=== PATIENT | female | born 1995 | race Caucasian/White ===

== ENCOUNTER 2021-08-23 16:13 | Emergency (ER) | payer MEDICAID ==
[~2021-08-23] VITALS: Ht 172.7 cm; Wt 65.9 kg
[2021-08-23] MEDS ORDERED: PERTUSS(ACELL),DIPH,TET VAC/PF 0.5 ML SYRINGE IM. ONE (17:15)
[2021-08-23 17:22] LABS: BASOPHILS % (AUTO) 0.7 % (0.0-2.0); EOSINOPHILS % (AUTO) 0.4 % (1.0-6.0); HEMATOCRIT 32.4 % (36-46); HEMOGLOBIN 10.5 g/dL (12.0-16.0); LYMPHOCYTES # (AUTO) 1.3 K/uL (1.0-4.8); LYMPHOCYTES % (AUTO) 24.9 % (22.0-44.0); MEAN CORPUSCULAR HEMOGLOBIN 22.9 pg (26.0-34.0); MEAN CORPUSCULAR HGB CONC 32.4 G/dL (31.0-37.0); MEAN CORPUSCULAR VOLUME 71 fL (80-100); MONOCYTES # (AUTO) 0.4 K/uL (0.1-1.0); MONOCYTES % (AUTO) 8.2 % (2.0-9.0); NEUTROPHILS # (AUTO) 3.4 K/uL (1.8-7.7); NEUTROPHILS % (AUTO) 65.8 % (40.0-70.0); PLATELET COUNT (AUTO) 307 K/uL (150-450); RED BLOOD CELL COUNT(AUTO) 4.57 MIL/uL (4.00-5.20); RED CELL DISTRIBUTION WIDTH 18.6 % (11.5-14.5)
[2021-08-23 17:30] LABS: ANION GAP 11 mmol/L (8-16); CARBON DIOXIDE 22 mmol/L (22-29); CHLORIDE 103 mmol/L (98-107); CREATININE 0.68 mg/dL (0.60-1.30); GLOMERULAR FILTR. RATE CALC > 60 mL/min (>60); GLUCOSE,RANDOM 91 mg/dL (70-110); POTASSIUM 3.3 mmol/L (3.5-5.1); SODIUM SERUM 136 mmol/L (136-145); UREA NITROGEN, BLOOD 8 mg/dL (7-18)
[2021-08-23 17:35] LABS: ALANINE AMINOTRANSFERASE 17 U/L (12-78); ALBUMIN 4.3 g/dL (3.4-5.0); ALKALINE PHOSPHATASE 46 U/L (46-116); ASPARTATE AMINOTRANSFERASE 17 U/L (15-37); BILIRUBIN,TOTAL 0.5 mg/dL (0.1-1.0); TOTAL PROTEIN, SERUM 7.8 g/dL (6.4-8.2)
[2021-08-23 18:32] VITALS: BP 114/62
== END 2021-08-23 18:47 | disposition home or self-care (01) ==
LOC: EMS 16:17
DX: S91.011A Laceration without foreign body, right ankle, initial encounter (principal); F32.9 Major depressive disorder, single episode, unspecified; F41.9 Anxiety disorder, unspecified; Z79.899 Other long term (current) drug therapy; W25.XXXA Contact with sharp glass, initial encounter; Y93.89 Activity, other specified; Y92.89 Other specified places as the place of occurrence of the external cause; Y99.8 Other external cause status
CPT/HCPCS: 36415; 73610; 80053; 85025; 90471; 90715; 99284; G0480

== ENCOUNTER 2021-09-25 17:39 | Inpatient (IN) | payer MEDICAID ==
[~2021-09-25] VITALS: Ht 172.7 cm; Wt 55.4 kg
[2021-09-25 18:27] LABS: BASOPHILS % (AUTO) 0.6 % (0.0-2.0); EOSINOPHILS % (AUTO) 0.1 % (1.0-6.0); HEMATOCRIT 30.4 % (36-46); LYMPHOCYTES # (AUTO) 1.1 K/uL (1.0-4.8); LYMPHOCYTES % (AUTO) 14.7 % (22.0-44.0); MEAN CORPUSCULAR HEMOGLOBIN 23.4 pg (26.0-34.0); MEAN CORPUSCULAR HGB CONC 32.9 G/dL (31.0-37.0); MEAN CORPUSCULAR VOLUME 71 fL (80-100); MONOCYTES # (AUTO) 0.6 K/uL (0.1-1.0); NEUTROPHILS # (AUTO) 5.5 K/uL (1.8-7.7); NEUTROPHILS % (AUTO) 76.6 % (40.0-70.0); PLATELET COUNT (AUTO) 252 K/uL (150-450); RED BLOOD CELL COUNT(AUTO) 4.27 MIL/uL (4.00-5.20); RED CELL DISTRIBUTION WIDTH 19.1 % (11.5-14.5)
[2021-09-25 18:35] LABS: ANION GAP 13 mmol/L (8-16); CARBON DIOXIDE 20 mmol/L (22-29); CHLORIDE 103 mmol/L (98-107); CREATININE 0.73 mg/dL (0.60-1.30); GLOMERULAR FILTR. RATE CALC > 60 mL/min (>60); GLUCOSE,RANDOM 93 mg/dL (70-110); POTASSIUM 3.3 mmol/L (3.5-5.1); SODIUM SERUM 136 mmol/L (136-145); UREA NITROGEN, BLOOD 11 mg/dL (7-18)
[2021-09-25 18:40] LABS: ALANINE AMINOTRANSFERASE 22 U/L (12-78); ALBUMIN 4.3 g/dL (3.4-5.0); ASPARTATE AMINOTRANSFERASE 18 U/L (15-37); BILIRUBIN,TOTAL 0.5 mg/dL (0.1-1.0); TOTAL PROTEIN, SERUM 7.4 g/dL (6.4-8.2)
[2021-09-25 18:54] LABS: ALKALINE PHOSPHATASE 42 U/L (46-116)
[2021-09-25] MEDS ORDERED: HALOPERIDOL 5 MG TABLET PO PRN (20:00)
[2021-09-25 20:05] LABS: COVID AG,FIA SOURCE NASAL SWAB
[2021-09-25] MEDS: LORazepam 2 MG TABLET PO PRN (20:30)
[2021-09-25] MEDS: ZOLPIDEM TARTRATE 10 MG TABLET PO PRN (20:58)
[2021-09-26] MEDS: LORazepam 2 MG TABLET PO PRN ×2 (08:34→16:32)
[2021-09-26] MEDS ORDERED: INFLUENZA VIRUS VACCINE QVS 2021-22 (6MO+)/PF 60 MCG/0.5 ML SYRINGE IM. ONE (10:30)
[2021-09-26 10:46] VITALS: BP 125/58
[2021-09-26] MEDS ORDERED: IBUPROFEN 600 MG TABLET PO PRN (22:00)
[2021-09-26] MEDS ORDERED: ACETAMINOPHEN 325 MG TABLET PO PRN (22:00)
[2021-09-26] MEDS ORDERED: CloNIDine HCL 0.1 MG TABLET PO PRN (22:00)
[2021-09-26] MEDS ORDERED: MAGNESIUM HYDROXIDE SUSPENSION 30 ML UDCUP PO PRN (22:00)
[2021-09-26] MEDS ORDERED: ALBUTEROL SULFATE HFA 90 MCG/PUFF 8 GM INHALER IH PRN (22:00)
[2021-09-26] MEDS ORDERED: DOCUSATE SODIUM 100 MG CAPSULE PO PRN (22:00)
[2021-09-26] MEDS ORDERED: MAG HYDROX/AL HYDROX/SIMETH ES 30 ML SUSPENSION UDCUP PO PRN (22:00)
[2021-09-26] MEDS ORDERED: LOPERAMIDE HCL 2 MG CAPSULE PO PRN (22:00)
[2021-09-26] MEDS ORDERED: BACITRACIN 28 GM OINTMENT TP PRN (22:00)
[2021-09-26] MEDS ORDERED: PETROLATUM,WHITE 28 GM JELLY TP PRN (22:00)
[2021-09-26] MEDS ORDERED: OMEPRAZOLE 20 MG CAPSULE PO PRN (22:00)
[2021-09-26] MEDS ORDERED: ONDANSETRON HCL 4 MG TABLET PO PRN (22:00)
[2021-09-26] MEDS ORDERED: BENZOCAINE/MENTHOL LOZENGE PO PRN (22:00)
[2021-09-27] MEDS: ZOLPIDEM TARTRATE 10 MG TABLET PO PRN ×2 (01:42→20:31)
[2021-09-27 01:43] VITALS: BP 134/77
[2021-09-27 08:24] LABS: FREE T4 (FREE THYROXINE) 1.28 ng/dL (0.76-1.46); THYROID STIMULATING HORMONE 0.52 uIU/mL (0.36-3.74)
[2021-09-27] MEDS ORDERED: POTASSIUM CHLORIDE 20 MEQ ER TABLET PO ONE (08:45)
[2021-09-27 08:48] VITALS: BP 105/77
[2021-09-27] MEDS: MULTIVITAMINS WITH MINERALS, THERAPEUTIC TABLET PO SCH (08:54)
[2021-09-27] MEDS: LORazepam 2 MG TABLET PO PRN ×2 (11:56→18:03)
[2021-09-27] MEDS: FERROUS SULFATE 325 MG EC TABLET PO SCH (16:26)
[2021-09-27 16:35] VITALS: BP 100/58
[2021-09-27 17:55] VITALS: BP 100/58
[2021-09-27 20:24] VITALS: BP 112/64
[2021-09-28] MEDS: LORazepam 2 MG TABLET PO PRN ×3 (03:49→12:39)
[2021-09-28 06:26] VITALS: BP 140/62
[2021-09-28] MEDS: FERROUS SULFATE 325 MG EC TABLET PO SCH (06:43)
[2021-09-28 08:05] LABS: CHOL/HDL RATIO 3.5 (3.9-5.7); POTASSIUM 4.1 mmol/L (3.5-5.1)
[2021-09-28] MEDS: MULTIVITAMINS WITH MINERALS, THERAPEUTIC TABLET PO SCH (08:39)
== END 2021-09-28 15:15 | disposition home or self-care (01) | DRG 753 ==
LOC: EMS 17:39 → B3A 09-26 08:30
PROVIDERS: ADMIT Psychiatry & Neurology Psychiatry; ATTEND Psychiatry & Neurology Psychiatry
DX: F31.9 Bipolar disorder, unspecified (principal); R45.851 Suicidal ideations; E87.6 Hypokalemia; F12.90 Cannabis use, unspecified, uncomplicated; F43.10 Post-traumatic stress disorder, unspecified; G47.00 Insomnia, unspecified; K59.00 Constipation, unspecified; F17.200 Nicotine dependence, unspecified, uncomplicated; Z20.822 Contact with and (suspected) exposure to COVID-19; Z91.410 Personal history of adult physical and sexual abuse; Z72.89 Other problems related to lifestyle; Z71.51 Drug abuse counseling and surveillance of drug abuser; Z71.6 Tobacco abuse counseling; Z28.21 Immunization not carried out because of patient refusal
CPT/HCPCS: 80053; 80061; 84132; 84439; 84443; 85025; 99285; G0480

== ENCOUNTER 2021-10-10 15:10 | Inpatient (IN) | payer MEDICAID ==
[~2021-10-10] VITALS: Ht 175.3 cm; Wt 53.5 kg
[2021-10-10 15:50] LABS: BASOPHILS % (AUTO) 0.7 % (0.0-2.0); HEMATOCRIT 32.5 % (36-46); HEMOGLOBIN 10.4 g/dL (12.0-16.0); LYMPHOCYTES # (AUTO) 1.5 K/uL (1.0-4.8); LYMPHOCYTES % (AUTO) 26.4 % (22.0-44.0); MEAN CORPUSCULAR HEMOGLOBIN 23.3 pg (26.0-34.0); MEAN CORPUSCULAR HGB CONC 31.9 G/dL (31.0-37.0); MEAN CORPUSCULAR VOLUME 73 fL (80-100); MONOCYTES # (AUTO) 0.7 K/uL (0.1-1.0); MONOCYTES % (AUTO) 12.2 % (2.0-9.0); NEUTROPHILS # (AUTO) 3.3 K/uL (1.8-7.7); NEUTROPHILS % (AUTO) 59.7 % (40.0-70.0); PLATELET COUNT (AUTO) 236 K/uL (150-450); RED BLOOD CELL COUNT(AUTO) 4.45 MIL/uL (4.00-5.20); RED CELL DISTRIBUTION WIDTH 20.1 % (11.5-14.5)
[2021-10-10 15:57] LABS: ANION GAP 7 mmol/L (8-16); CALCIUM, TOTAL 8.3 mg/dL (8.8-10.5); CARBON DIOXIDE 27 mmol/L (22-29); CHLORIDE 103 mmol/L (98-107); CREATININE 0.56 mg/dL (0.60-1.30); GLUCOSE,RANDOM 94 mg/dL (70-110); POTASSIUM 3.4 mmol/L (3.5-5.1); SODIUM SERUM 137 mmol/L (136-145); UREA NITROGEN, BLOOD 11 mg/dL (7-18)
[2021-10-10 15:58] LABS: GLOMERULAR FILTR. RATE CALC > 60 mL/min (>60)
[2021-10-10 16:03] LABS: ALANINE AMINOTRANSFERASE 17 U/L (12-78); ALBUMIN 3.6 g/dL (3.4-5.0); ALKALINE PHOSPHATASE 33 U/L (46-116); ASPARTATE AMINOTRANSFERASE 12 U/L (15-37); BILIRUBIN,TOTAL 0.3 mg/dL (0.1-1.0); TOTAL PROTEIN, SERUM 6.3 g/dL (6.4-8.2)
[2021-10-10 16:11] LABS: ACETAMINOPHEN 156 mcg/mL (10-30)
[2021-10-10] MEDS ORDERED: SODIUM CHLORIDE 0.9% 1,000 ML IV ONE (16:30)
[2021-10-10 16:34] LABS: COVID AG,FIA SOURCE NASAL SWAB
[2021-10-10 17:49] LABS: AMPHET/METH SCREEN,URINE NEGATIVE (NEGATIVE); BARBITURATE SCREEN, URINE NEGATIVE (NEGATIVE); BENZODIAZEPINES SCREEN,URINE NEGATIVE (NEGATIVE); CANNABINOID SCREEN,URINE POSITIVE (NEGATIVE); COCAINE SCREEN,URINE NEGATIVE (NEGATIVE); METHADONE SCREEN, URINE NEGATIVE (NEGATIVE); OPIATE SCREEN,URINE NEGATIVE (NEGATIVE)
[2021-10-10 17:50] LABS: PHENCYCLIDINE SCREEN,URINE NEGATIVE (NEGATIVE)
[2021-10-11 02:51] VITALS: BP 102/60
[2021-10-11 06:01] VITALS: BP 102/60
[2021-10-11] MEDS: LORazepam 2 MG TABLET PO PRN (08:22)
[2021-10-11] MEDS ORDERED: DiphenhydrAMINE HCL 50 MG/ML VIAL ONE (08:48)
[2021-10-11] MEDS ORDERED: HALOPERIDOL LACTATE 5 MG/ML VIAL ONE (08:48)
[2021-10-11] MEDS: HALOPERIDOL 5 MG TABLET PO PRN (08:48)
[2021-10-11] MEDS ORDERED: LORazepam 2 MG/ML VIAL ONE (08:48)
[2021-10-11] MEDS ORDERED: HALOPERIDOL LACTATE 5 MG/ML VIAL IM ONE (09:00)
[2021-10-11] MEDS ORDERED: DiphenhydrAMINE HCL 50 MG/ML VIAL IM ONE (09:00)
[2021-10-11] MEDS ORDERED: LORazepam 2 MG/ML VIAL IM ONE (09:00)
[2021-10-11 10:06] VITALS: BP 118/68
[2021-10-11] MEDS ORDERED: IBUPROFEN 600 MG TABLET PO PRN (15:00)
[2021-10-11] MEDS ORDERED: ALBUTEROL SULFATE HFA 90 MCG/PUFF 8 GM INHALER IH PRN (15:00)
[2021-10-11] MEDS ORDERED: MAG HYDROX/AL HYDROX/SIMETH ES 30 ML SUSPENSION UDCUP PO PRN (15:00)
[2021-10-11] MEDS ORDERED: POTASSIUM CHLORIDE 20 MEQ ER TABLET PO ONE (15:00)
[2021-10-11] MEDS ORDERED: MAGNESIUM HYDROXIDE SUSPENSION 30 ML UDCUP PO PRN (15:00)
[2021-10-11] MEDS ORDERED: LOPERAMIDE HCL 2 MG CAPSULE PO PRN (15:00)
[2021-10-11] MEDS ORDERED: CloNIDine HCL 0.1 MG TABLET PO PRN (15:00)
[2021-10-11] MEDS ORDERED: PETROLATUM,WHITE 28 GM JELLY TP PRN (15:00)
[2021-10-11] MEDS ORDERED: OMEPRAZOLE 20 MG CAPSULE PO PRN (15:00)
[2021-10-11] MEDS ORDERED: BACITRACIN 28 GM OINTMENT TP PRN (15:00)
[2021-10-11] MEDS ORDERED: DOCUSATE SODIUM 100 MG CAPSULE PO PRN (15:00)
[2021-10-11] MEDS ORDERED: ACETAMINOPHEN 325 MG TABLET PO PRN (15:00)
[2021-10-11] MEDS ORDERED: BENZOCAINE/MENTHOL LOZENGE PO PRN (15:00)
[2021-10-11] MEDS: ZOLPIDEM TARTRATE 10 MG TABLET PO PRN (23:44)
[2021-10-12 00:55] VITALS: BP 110/62
[2021-10-12 06:12] VITALS: BP 134/60
[2021-10-12] MEDS: LORazepam 2 MG TABLET PO PRN (06:13)
[2021-10-12 07:53] LABS: BASOPHILS % (AUTO) 0.8 % (0.0-2.0); EOSINOPHILS % (AUTO) 2.4 % (1.0-6.0); HEMATOCRIT 34.4 % (36-46); HEMOGLOBIN 10.9 g/dL (12.0-16.0); LYMPHOCYTES # (AUTO) 2.4 K/uL (1.0-4.8); LYMPHOCYTES % (AUTO) 45.2 % (22.0-44.0); MEAN CORPUSCULAR HEMOGLOBIN 23.3 pg (26.0-34.0); MEAN CORPUSCULAR HGB CONC 31.7 G/dL (31.0-37.0); MEAN CORPUSCULAR VOLUME 74 fL (80-100); MONOCYTES # (AUTO) 0.5 K/uL (0.1-1.0); MONOCYTES % (AUTO) 9.7 % (2.0-9.0); NEUTROPHILS # (AUTO) 2.2 K/uL (1.8-7.7); NEUTROPHILS % (AUTO) 41.9 % (40.0-70.0); PLATELET COUNT (AUTO) 253 K/uL (150-450); RED BLOOD CELL COUNT(AUTO) 4.69 MIL/uL (4.00-5.20); RED CELL DISTRIBUTION WIDTH 20.3 % (11.5-14.5)
[2021-10-12 08:13] LABS: ACETAMINOPHEN < 2 mcg/mL (10-30); ALBUMIN 3.6 g/dL (3.4-5.0); ALKALINE PHOSPHATASE 35 U/L (46-116); ANION GAP 6 mmol/L (8-16); ASPARTATE AMINOTRANSFERASE 15 U/L (15-37); BILIRUBIN,TOTAL 0.6 mg/dL (0.1-1.0); CALCIUM, TOTAL 8.8 mg/dL (8.8-10.5); CARBON DIOXIDE 27 mmol/L (22-29); CHLORIDE 104 mmol/L (98-107); CREATININE 0.64 mg/dL (0.60-1.30); GLOMERULAR FILTR. RATE CALC > 60 mL/min (>60); GLUCOSE,RANDOM 82 mg/dL (70-110); PHOSPHORUS 3.5 mg/dL (2.5-4.9); POTASSIUM 4.1 mmol/L (3.5-5.1); SODIUM SERUM 137 mmol/L (136-145); TOTAL PROTEIN, SERUM 6.4 g/dL (6.4-8.2); UREA NITROGEN, BLOOD 13 mg/dL (7-18)
[2021-10-12 08:15] VITALS: BP 105/65
[2021-10-12 08:21] LABS: ALANINE AMINOTRANSFERASE 16 U/L (12-78)
[2021-10-12] MEDS: THIAMINE 100 MG TABLET PO SCH (08:39)
[2021-10-12] MEDS: MULTIVITAMINS WITH MINERALS, THERAPEUTIC TABLET PO SCH (08:39)
[2021-10-12] MEDS: FOLIC ACID 1 MG TABLET PO SCH (08:39)
[2021-10-12] MEDS: ONDANSETRON HCL 4 MG TABLET PO PRN (16:00)
[2021-10-12 16:07] VITALS: BP 108/72
[2021-10-12 17:11] VITALS: BP 113/70
[2021-10-12] MEDS: ZOLPIDEM TARTRATE 10 MG TABLET PO PRN (21:51)
[2021-10-13 04:46] VITALS: BP 107/63
[2021-10-13] MEDS: ONDANSETRON HCL 4 MG TABLET PO PRN (04:57)
[2021-10-13] MEDS: LORazepam 2 MG TABLET PO PRN ×2 (04:57→09:46)
[2021-10-13 07:00] LABS: BASOPHILS % (AUTO) 0.6 % (0.0-2.0); EOSINOPHILS % (AUTO) 1.6 % (1.0-6.0); HEMATOCRIT 33.3 % (36-46); HEMOGLOBIN 10.6 g/dL (12.0-16.0); LYMPHOCYTES # (AUTO) 1.8 K/uL (1.0-4.8); LYMPHOCYTES % (AUTO) 26.8 % (22.0-44.0); MEAN CORPUSCULAR HEMOGLOBIN 23.3 pg (26.0-34.0); MEAN CORPUSCULAR HGB CONC 31.9 G/dL (31.0-37.0); MEAN CORPUSCULAR VOLUME 73 fL (80-100); MONOCYTES # (AUTO) 0.7 K/uL (0.1-1.0); NEUTROPHILS # (AUTO) 4.2 K/uL (1.8-7.7); PLATELET COUNT (AUTO) 261 K/uL (150-450); RED BLOOD CELL COUNT(AUTO) 4.55 MIL/uL (4.00-5.20); RED CELL DISTRIBUTION WIDTH 20.4 % (11.5-14.5)
[2021-10-13 07:08] LABS: APPEARANCE,URINE CLEAR (CLEAR); BILIRUBIN,URINE NEGATIVE (NEGATIVE); GLUCOSE, URINE (UA) NEGATIVE (NEGATIVE); KETONES,URINE NEGATIVE (NEGATIVE); LEUKOCYTE ESTERASE ,URINE TRACE (NEGATIVE); NITRATE,URINE NEGATIVE (NEGATIVE); OCCULT BLOOD,URINE NEGATIVE (NEGATIVE); PROTEIN,URINE NEGATIVE (NEGATIVE); SPECIFIC GRAVITIY, URINE 1.018 (1.003-1.030); UROBILINOGEN,URINE <=1.0 mg/dL (<=1.0)
[2021-10-13 07:12] LABS: % IRON SATURATION 30.4 % (22-44); ALANINE AMINOTRANSFERASE 17 U/L (12-78); ALBUMIN 3.9 g/dL (3.4-5.0); ALKALINE PHOSPHATASE 40 U/L (46-116); ANION GAP 5 mmol/L (8-16); ASPARTATE AMINOTRANSFERASE 15 U/L (15-37); BILIRUBIN,TOTAL 0.5 mg/dL (0.1-1.0); CALCIUM, TOTAL 8.8 mg/dL (8.8-10.5); CARBON DIOXIDE 29 mmol/L (22-29); CHLORIDE 104 mmol/L (98-107); CREATININE 0.74 mg/dL (0.60-1.30); GLOMERULAR FILTR. RATE CALC > 60 mL/min (>60); GLUCOSE,RANDOM 87 mg/dL (70-110); IRON, SERUM 73 mcg/dL (50-175); POTASSIUM 3.6 mmol/L (3.5-5.1); SODIUM SERUM 138 mmol/L (136-145); TOTAL IRON BINDING CAPACITY 240 mcg/dL (250-450); TOTAL PROTEIN, SERUM 6.8 g/dL (6.4-8.2); UREA NITROGEN, BLOOD 8 mg/dL (7-18)
[2021-10-13 07:14] LABS: BACTERIA,URINE None Seen /HPF (None Seen); RBC,URINE None Seen /HPF (0-2); WBC,URINE 0-2 /HPF (0-5)
[2021-10-13 07:15] LABS: SQUAMOUS EPITHELIAL CELL,UR Moderate /LPF (None Seen)
[2021-10-13 08:17] VITALS: BP 108/70
[2021-10-13] MEDS: DIVALPROEX SODIUM 500 MG DR TABLET PO SCH ×2 (08:38→20:14)
[2021-10-13] MEDS: FOLIC ACID 1 MG TABLET PO SCH (08:38)
[2021-10-13] MEDS: THIAMINE 100 MG TABLET PO SCH (08:38)
[2021-10-13] MEDS: MULTIVITAMINS WITH MINERALS, THERAPEUTIC TABLET PO SCH (08:39)
[2021-10-13] MEDS: HALOPERIDOL 5 MG TABLET PO PRN (09:46)
[2021-10-13 16:12] VITALS: BP 99/61
[2021-10-13] MEDS: ZOLPIDEM TARTRATE 10 MG TABLET PO PRN (21:56)
[2021-10-14 06:13] VITALS: BP 107/63
[2021-10-14] MEDS: MULTIVITAMINS WITH IRON TABLET PO SCH (07:04)
[2021-10-14] MEDS: THIAMINE 100 MG TABLET PO SCH (08:09)
[2021-10-14] MEDS: FOLIC ACID 1 MG TABLET PO SCH (08:09)
[2021-10-14] MEDS: DIVALPROEX SODIUM 500 MG DR TABLET PO SCH ×2 (08:09→20:21)
[2021-10-14 08:42] VITALS: BP 115/61
[2021-10-14 16:17] VITALS: BP 103/61
[2021-10-14] MEDS: ZOLPIDEM TARTRATE 10 MG TABLET PO PRN (21:40)
[2021-10-15 00:54] VITALS: BP 126/72
[2021-10-15] MEDS: MULTIVITAMINS WITH IRON TABLET PO SCH (07:04)
[2021-10-15] MEDS: FOLIC ACID 1 MG TABLET PO SCH (08:47)
[2021-10-15] MEDS: DIVALPROEX SODIUM 500 MG DR TABLET PO SCH (08:47)
[2021-10-15] MEDS: THIAMINE 100 MG TABLET PO SCH (08:47)
[2021-10-15 09:04] VITALS: BP 118/68
== END 2021-10-15 15:28 | disposition left against medical advice (07) | DRG 753 ==
LOC: EMS 15:13 → UNDOADMIN 23:45 → B2S 23:45 → EMS 23:51 → B2S 10-11 00:11
PROVIDERS: ADMIT Psychiatry & Neurology Psychiatry; ATTEND Psychiatry & Neurology Psychiatry
DX: F31.9 Bipolar disorder, unspecified (principal); R45.851 Suicidal ideations; E87.6 Hypokalemia; G47.00 Insomnia, unspecified; F12.90 Cannabis use, unspecified, uncomplicated; T39.1X2A Poisoning by 4-Aminophenol derivatives, intentional self-harm, initial encounter; Z20.822 Contact with and (suspected) exposure to COVID-19; K59.00 Constipation, unspecified; F41.9 Anxiety disorder, unspecified; Z72.89 Other problems related to lifestyle; Z71.6 Tobacco abuse counseling; Z72.0 Tobacco use; Y92.89 Other specified places as the place of occurrence of the external cause; Z71.41 Alcohol abuse counseling and surveillance of alcoholic; Z53.29 Procedure and treatment not carried out because of patient's decision for other reasons
CPT/HCPCS: 80053; 81001; 83540; 83550; 83735; 84100; 84703; 85025; 86592; 87081; 87491; 87591; 99285; G0480; G0481; J1200; J1630; J2060; J7030; Q0162